=== PATIENT | male | born 1960 | race Caucasian/White ===

== ENCOUNTER 2019-06-19 10:00 | Inpatient (IN) | payer OTHER ==
[~2019-06-19] VITALS: Ht 172.7 cm; Wt 95.4 kg
[~2019-06-19 10:00] MED LIST: ATOR1TAB19 PO; BASA100I SC; METF500T13 PO; OMEP40CA97 PO; WARF-22 PO
[2019-06-20 13:02] LABS: BASO # 0.1 10^3/uL (0.0-0.2); BASO % 0.3 % (0.0-1.0); EOS # 0.2 10^3/uL (0.0-0.5); HEMATOCRIT 43.3 % (42.0-52.0); LYMPH # 3.8 10^3/uL (1.5-5.0); LYMPH % 25.2 % (24.0-44.0); MEAN CORPUSCULAR HEMOGLOBIN 31.7 pg (27.0-33.0); MEAN CORPUSCULAR HGB CONC 34.6 g/dl (32.0-36.5); MEAN CORPUSCULAR VOLUME 91.5 fl (80.0-96.0); MONO # 1.6 10^3/uL (0.0-0.8); MONO % 10.4 % (0.0-5.0); NEUTROPHILS # 9.5 10^3/uL (1.5-8.5); NEUTROPHILS % 62.6 % (36.0-66.0); PLATELET COUNT, AUTOMATED 223 10^3/uL (150-450); RED BLOOD COUNT 4.73 10^6/uL (4.30-6.10); WHITE BLOOD COUNT 15.1 10^3/uL (4.0-10.0)
[2019-06-20] MEDS ORDERED: WARF-22 PO (13:16)
[2019-06-20] MEDS ORDERED: METF-877 PO (13:16)
[2019-06-20] MEDS ORDERED: OMEP-218 PO (13:16)
[2019-06-20 13:22] LABS: INR 1.15; PARTIAL THROMBOPLASTIN TIME 28.4 SECONDS (25.0-38.4); PROTHROMBIN TIME 14.4 SECONDS (11.8-14.0)
[2019-06-20 13:31] LABS: BLOOD UREA NITROGEN 11 MG/DL (7-18); CALCIUM LEVEL 8.7 MG/DL (8.8-10.2); CARBON DIOXIDE LEVEL 28 MEQ/L (21-32); CHLORIDE LEVEL 106 MEQ/L (98-107); CREATININE FOR GFR 0.94 MG/DL (0.70-1.30); GLOMERULAR FILTRATION RATE > 60.0 (>49); GLUCOSE, FASTING 134 MG/DL (70-100); POTASSIUM SERUM 3.7 MEQ/L (3.5-5.1); SODIUM LEVEL 140 MEQ/L (136-145)
[2019-06-20] MEDS ORDERED: GLUCOSE 4 GM CHEW TABLET PO PRN (13:45)
[2019-06-20] MEDS ORDERED: GLUCAGON FOR INJ 1 MG VIAL (J1610) SC PRN (13:45)
[2019-06-20] MEDS ORDERED: OMEPRAZOLE 20 MG CAP PO PRN (13:45)
[2019-06-20] MEDS ORDERED: DEXTROSE 50% 50 ML SYRINGE IV PRN (13:45)
[2019-06-20] MEDS ORDERED: HEPARIN SOD (PORCINE) 5000 UNITS/ML VIAL (J1644 PER 1000UNITS) IV PRN (13:45)
[2019-06-20 14:00] VITALS: BP 120/63
[2019-06-20] MEDS: HEPARIN DRIP 25,000 UNITS in IV 1 EA IV SCH (15:18)
--- NOTE | 2019-06-20 16:06 | HPEPDOC ---
General Date of Admission Jun 20, 2019 at 12:06 Date of Service: Jun 20, 2019 Chief Complaint The patient is a 58-year-old male admitted with a reason for visit of Elevated Prostate Specific Antigen, History Of. Source: Patient, RN/, Old records History of Present Illness 58 year old male with metallic aortic valve replacement, pacemaker, bladder cancer, Diabetes, GERD has been noted to have elevated PSA by urologist. For this patient needs a prostate biopsy. Patient is on coumadin for AVR metallic valve and per preoperative clearance done by Dr Solomon needs to the bridged with heparin after stopping coumadin prior to prostate biopsy. So the patient was admitted to the hospitalist service for anticoagulant bridging. Biopsy is scheduled for 06/22/[address] Steiner. Patient does not offer any complaints today. Home Medications Scheduled Atorvastatin Calcium (Atorvastatin Calcium) 10 Mg Tablet, 10 MG PO QPM, (Reported) @ 1800 Insulin Glargine,Hum.rec.anlog (Basaglar Kwikpen U-100) 100 Unit/1 Ml Insuln.pen, 10 UNIT SC QPM, (Reported) @1800 Metformin HCl (Metformin HCl) 1,000 Mg Tablet, 1,000 MG PO BID, (Reported) Warfarin Sodium (Warfarin Sodium) 10 Mg Tablet, 10 MG PO 6XWK, (Reported) TAKES 1/2 TAB ON MONDAYS. TAKES MEDICATION AT 0600 Warfarin Sodium (Warfarin Sodium) 10 Mg Tablet, 5 MG PO 1XWK, (Reported) MONDAYS @ 0600 Scheduled PRN Omeprazole (Omeprazole) 20 Mg Capsule.dr, 20 MG PO DAILY PRN for HEARTBURN, (Reported) Allergies Coded Allergies: No Known Allergies (Unverified , 06/19/19) Past Medical History Medical History GERD MECHANICAL VAVLE REPLACEMENT- AORTIC VALVE PACEMAKER FOR COMPLETE HEART BLOCK BLADDER CANCER-2017, TREATED IN [place] DIABETES HYPERLIPIDEMIA ELEVATED PSA Surgical History OPEN HEART SURGERY- MECHANICAL VALVE & PACEMAKER PLACEMENT 05/2017 BLADDER BIOPSY, CANCER REMOVAL Family History FATHER: 49 YRS, HEART ATTACK, DIAGNOSED WITH DIABETES MOTHER: 87 YRS BROTHER-CANCER- ABDOMINAL CANCER, BROTHER HAD KIDNEY STONES, Heart Valve problem SISTER-DIABETES , heart Valve problem Social History * Smoker: current smoker Alcohol: Denies Drugs: denies A-FIB/CHADSVASC A-FIB History Current PO Anticoag Therapy: Yes Review of Systems Constitutional: Denies: Chills, Fever, Night Sweats Eyes: Denies: Pain, Vision change ENT: Denies: Head Aches, Ear Pain, Dysphagia Skin: Denies: Rash, Lesions, Breakdown Pulmonary: Denies: Dyspnea, Cough Cardiovascular: Denies: Chest Pain, Palpitations, Orthopnea, Paroxysmal Noc. Dyspnea, Lt Headedness Gastrointestinal: Denies: Nausea, Vomiting, Abdominal Pain, Diarrhea Genitourinary: Denies: Dysuria, Frequency, Incontinence, Retention Hematologic: Denies: Bruising, Bleeding Excessively Musculoskeletal: Denies: Neck Pain, Back Pain, Joint Pain, Muscle Pain, Spasms Physical Examination General Exam: Positive: Alert, Cooperative, No Acute Distress Eye Exam: Positive: PERRLA, Conjunctiva & lids normal, EOMI; Negative: Sclera icteric ENT Exam: Positive: Atraumatic, Mucous membr. moist/pink, Pharynx Normal Neck Exam: Positive: Supple; Negative: JVD, thyromegaly Chest Exam: Positive: Clear to auscultation, Normal air movement Heart Exam: Positive: Rate Normal, Regular Rhythm, Normal S1, Normal S2, Murmurs (short systolic murumur), Other (click); Negative: Rubs Abdomen Exam: Positive: Normal bowel sounds, Soft; Negative: Tenderness, Hepatospenomegaly Extremity Exam: Positive: Normal pulses; Negative: Clubbing, Cyanosis, Edema Skin Exam: Positive: Nl turgor and temperature; Negative: Breakdown, Lesion Neuro Exam: Positive: Normal Gait, Normal Speech, Cranial Nerves 3-12 NL, Reflexes 2+ Laboratory Data Labs 24H Laboratory Tests 2 06/20/19 12:52: Immature Granulocyte % (Auto) 0.5, Neutrophils (%) (Auto) 62.6, Lymphocytes (%) (Auto) 25.2, Monocytes (%) (Auto) 10.4H, Eosinophils (%) (Auto) 1.0, Basophils (%) (Auto) 0.3, Neutrophils # (Auto) 9.5H, Lymphocytes # (Auto) 3.8, Monocytes # (Auto) 1.6H, Eosinophils # (Auto) 0.2, Basophils # (Auto) 0.1, Nucleated Red Blood Cells % (auto) 0.0, Prothrombin Time 14.4H, Prothromb Time International Ratio 1.15, Activated Partial Thromboplast Time 28.4, Anion Gap 6L, Glomerular Filtration Rate > 60.0, Calcium Level 8.7L CBC/BMP Laboratory Tests 06/20/19 12:52 Assessment/Plan 58 year old male with metallic aortic valve replacement, pacemaker, bladder cancer, Diabetes, GERD has been noted to have elevated PSA by urologist. For this patient needs a prostate biopsy. Patient is on coumadin for AVR metallic valve and per preoperative clearance done by Dr Solomon needs to the bridged with heparin after stopping coumadin prior to prostate biopsy. So the patient was admitted to the hospitalist service for anticoagulant bridging. ELEVATED PSA prostate Bx on 06/22/19 MECHANICAL VAVLE REPLACEMENT- AORTIC VALVE coumadin has been stopped prior to admission INR noted. start patient on heparin gtt DIABETES stop meformin lispro as per sliding scale Levemir at HS FS AC and HS HYPERLIPIDEMIA statin GERD omeprazole PACEMAKER FOR COMPLETE HEART BLOCK BLADDER CANCER-2017, TREATED IN [place] Plan / VTE VTE Prophylaxis Ordered?: Yes BENIGNO JURADO MD Jun 20, 2019 13:57
[2019-06-20] MEDS: ATORVASTATIN 10 MG TAB PO SCH (18:12)
[2019-06-20] MEDS: HumaLOG INSULIN (NovoLOG) PER UNIT SC SCH ×2 (18:12→20:17)
[2019-06-20] MEDS: LEVEMIR (INSULIN DETEMIR) 1 UNITS/0.01ML SC SCH (20:22)
[2019-06-20 22:00] VITALS: BP 128/67
[2019-06-21 03:44] LABS: HEMATOCRIT 43.1 % (42.0-52.0); HEMOGLOBIN 14.5 g/dl (13.5-17.5); MEAN CORPUSCULAR HEMOGLOBIN 31.2 pg (27.0-33.0); MEAN CORPUSCULAR HGB CONC 33.6 g/dl (32.0-36.5); MEAN CORPUSCULAR VOLUME 92.7 fl (80.0-96.0); PLATELET COUNT, AUTOMATED 206 10^3/uL (150-450); RED BLOOD COUNT 4.65 10^6/uL (4.30-6.10); WHITE BLOOD COUNT 16.7 10^3/uL (4.0-10.0)
[2019-06-21 04:16] LABS: ATYPICAL LYMPH 6 % (0-5); BASOPHILS 1 % (0-1); EOSINOPHILS 1 % (0-3); LYMPHOCYTES 35 % (16-44); MONOCYTES 11 % (0-5); NEUTROPHILS 46 % (28-66)
[2019-06-21 04:17] LABS: PLATELET ESTIMATE NORMAL (NORMAL)
[2019-06-21 04:27] LABS: BLOOD UREA NITROGEN 11 MG/DL (7-18); CALCIUM LEVEL 7.8 MG/DL (8.8-10.2); CARBON DIOXIDE LEVEL 31 MEQ/L (21-32); CHLORIDE LEVEL 109 MEQ/L (98-107); CREATININE FOR GFR 0.77 MG/DL (0.70-1.30); GLOMERULAR FILTRATION RATE > 60.0 (>49); GLUCOSE, FASTING 100 MG/DL (70-100); POTASSIUM SERUM 4.3 MEQ/L (3.5-5.1); SODIUM LEVEL 143 MEQ/L (136-145)
[2019-06-21 06:00] VITALS: BP 126/61
[2019-06-21] MEDS: HumaLOG INSULIN (NovoLOG) PER UNIT SC SCH ×4 (07:30→20:59)
[2019-06-21] MEDS: HEPARIN DRIP 25,000 UNITS in IV 1 EA IV SCH (08:28)
--- NOTE | 2019-06-21 12:08 | CR ---
DATE OF CONSULTATION: 06/20/2019 CHIEF COMPLAINT: Elevated prostate-specific antigen (PSA) on Coumadin. He was admitted for bridging prior to his procedure. HISTORY: This is a pleasant, 58-year-old white male, who was found to have a very hard prostate and elevated PSA of 11.7. He was scheduled for a prostate ultrasound and biopsy, but because of his Coumadin use for a prosthetic aortic valve, he was admitted for bridging prior to the procedure. He also has a history of bladder cancer and is scheduled for a cystoscopic evaluation. PAST MEDICAL HISTORY: Significant for; Gastroesophageal reflux disease (GERD). Mechanical aortic valve replacement. Pacemaker for a complete heart block. Bladder cancer diagnosed in 2018 while in [place]. Diabetes. Hyperlipidemia. ALLERGIES: None. PREVIOUS SURGERIES: Open heart surgery with mechanical valve and pacemaker placement in 05/2017. Bladder biopsy and bladder tumor resection in 2018. FAMILY HISTORY: Father at age 49 from heart attack, also had diabetes. Mother at age 87. One brother had abdominal cancer, another brother had kidney stones, and a sister has diabetes. SOCIAL HISTORY: Patient is , current smoker. REVIEW OF SYSTEMS: Negative, as per 12-point review. PHYSICAL EXAMINATION: Shows alert, oriented, white male, who is in no acute distress. HEENT: Pupils equal and reactive to light, sclera white, extraocular movements intact. NECK: Supple without adenopathy. Trachea is in midline. No jugular venous distention. CHEST: Normal thoracic. ABDOMEN: Is slightly rounded, benign with no masses, organomegaly, or tenderness. GENITALIA: Is normal. EXTREMITIES: Have good range of motion. ASSESSMENT: Patient is scheduled for a prostate biopsy for indurated prostate and elevated prostate-specific antigen (PSA) also for cystoscopy because of a history of bladder cancer. Patient will be bridged with Lovenox, which will be stopped 4 hours prior to his 11 o'clock procedure. He will be nothing by mouth after midnight and also have a Fleets enema the morning of the procedure and start antibiotics with one dose of Cipro the evening before, another dose the morning of his procedure.
--- NOTE | 2019-06-21 13:27 | IPNPDOC ---
Subjective Date Seen The patient was seen on 06/21/19. Subjective Chief Complaint/HPI Elevated PSA scheduled for cystoscopy and biopsy on 06/22/2019 General: Reports: Normal Appetite; Denies: Chills, Night Sweats, Fatigue, Malaise Constitutional: Denies: Chills, Fever, Night Sweats Objective Physical Examination General Exam: Positive: Alert, Cooperative, No Acute Distress Eye Exam: Positive: PERRLA, Conjunctiva & lids normal, EOMI; Negative: Sclera icteric ENT Exam: Positive: Atraumatic, Mucous membr. moist/pink, Pharynx Normal Neck Exam: Positive: Supple; Negative: JVD, thyromegaly Chest Exam: Positive: Clear to auscultation, Normal air movement Heart Exam: Positive: Rate Normal, Regular Rhythm, Normal S1, Normal S2, Murmurs (short systolic murumur), Other (click); Negative: Rubs Abdomen Exam: Positive: Normal bowel sounds, Soft; Negative: Tenderness, Hepatospenomegaly Extremity Exam: Positive: Normal pulses; Negative: Clubbing, Cyanosis, Edema Skin Exam: Positive: Nl turgor and temperature; Negative: Breakdown, Lesion Neuro Exam: Positive: Normal Gait, Normal Speech, Cranial Nerves 3-12 NL, Reflexes 2+ Other physical findings Patient is alert, oriented and in no acute distress well and eating well. Assessment /Plan Assessment Plan to continue coverage with Lovenox. This will be stopped 4 hours before his Levaquin o'clock procedure. He also will start antibiotics tonight with a second dose in the morning and he will have an enema in the morning as well. Plan/VTE VTE Prophylaxis Ordered?: Yes VS, I&O, 24H, [facility] Vital Signs/I&O Vital Signs Date Time Temp Pulse Resp B/P (MAP) Pulse Ox O2 Delivery O2 Flow Rate FiO2 06/21/19 06:00 97.5 59 16 126/61 (82) 99 Room Air I&O- Last 24 Hours up to 6 AM 06/21/19 06:00 Intake Total 642 ml Balance 642 ml Laboratory Data 24H LABS Laboratory Tests 2 06/20/19 13:57: Activated Partial Thromboplast Time 28.0 06/20/19 17:49: Bedside Glucose (Misc Panel) 177H 06/20/19 19:58: Bedside Glucose (Misc Panel) 158H 06/20/19 21:06: Activated Partial Thromboplast Time 72.1H 06/21/19 03:34: Neutrophils (%) (Auto) , Lymphocytes # (Auto) , Nucleated Red Blood Cells % (auto) 0.0, Neutrophils 46, Lymphocytes (Manual) 35, Monocytes (Manual) 11H, Eosinophils (Manual) 1, Basophils (Manual) 1, Atypical Lymphocytes 6H, Platelet Estimate NORMAL, Differential Slide Review Report, Peripheral Blood Smear Path Consult PERIPHERAL SMEAR, Activated Partial Thromboplast Time 83.3H, Anion Gap 3L, Glomerular Filtration Rate > 60.0, Calcium Level 7.8L 06/21/19 12:06: Bedside Glucose (Misc Panel) 125H CBC/BMP Laboratory Tests 06/21/19 03:34 KAISER TOLBERT MD Jun 21, 2019 13:27
--- NOTE | 2019-06-21 13:34 | IPN ---
DATE: 06/21/2019 PRIMARY CARE PROVIDER: ASHLEY Watson. UROLOGIST: Dr. Forest Steiner. Mr. Hunt was admitted for bridge therapy. He has a mechanical aortic valve and is on intravenous (IV) heparin in anticipation of a prostate biopsy tomorrow. No epistaxis, rectal bleeding or urinary bleeding. PHYSICAL EXAMINATION: VITAL SIGNS: Stable. LUNGS: Clear. HEART: Regular rate and rhythm. [place] prosthetic aortic valve click. ABDOMEN: Soft, nontender. No masses. No peripheral edema. LABORATORIES: White count 16.7, hemoglobin 14.5, platelets 206. Electrolytes unremarkable. IMPRESSION: 1. Elevated PSA. Plan: Prostate biopsy tomorrow. Holding his IV heparin an hour before the procedure, restarting it postoperatively, with reinstitution of his warfarin therapy. 2. Mechanical aortic valve. Bridge therapy with IV heparin in place. 3. Leukocytosis. Peripheral smear ordered.
[2019-06-21 14:00] VITALS: BP 132/66
[2019-06-21] MEDS: CIPROFLOXACIN 500 MG TAB PO SCH (18:00)
[2019-06-21] MEDS: ATORVASTATIN 10 MG TAB PO SCH (18:00)
--- NOTE | 2019-06-21 20:43 | IPN ---
DATE: 06/21/2019 ADDENDUM: Mr. Hunt is quite concerned about his behavior when he comes out of anesthesia. Apparently, he is combative and he is worried "I am going to take a swing at somebody." He wanted me to make the ophthalmic asst and operating room staff aware that he can be combative when emerging from anesthesia, so we will pass this along via this note.
[2019-06-21] MEDS: LEVEMIR (INSULIN DETEMIR) 1 UNITS/0.01ML SC SCH (21:04)
[2019-06-21 22:00] VITALS: BP 145/73
[2019-06-22] VITALS (8 sets, daily range): BP systolic 127–150; BP diastolic 66–89
[2019-06-22] MEDS: HEPARIN DRIP 25,000 UNITS in IV 1 EA IV SCH (01:28)
[2019-06-22] MEDS ORDERED: LR 1,000 ML IV ONE (06:00)
[2019-06-22] MEDS: CIPROFLOXACIN 500 MG TAB PO SCH (06:03)
[2019-06-22] MEDS ORDERED: FLEET ENEMA PR ONE (07:00)
[2019-06-22] MEDS: HumaLOG INSULIN (NovoLOG) PER UNIT SC SCH ×4 (07:30→20:28)
--- NOTE | 2019-06-22 07:44 | IPNPDOC ---
Subjective Review oF Systems Chief Complaint The patient is a 58-year-old male admitted with a reason for visit of Elevated Prostate Specific Antigen, History Of. Events since Last Encounter No acute events o/n. Objective Physical Examination General Exam: Alert, Cooperative, No Acute Distress Chest Exam: Normal air movement Heart Exam: Positive: Rate Normal, Regular Rhythm ABDOMEN EXAM: Soft Skin Exam: Nl turgor and temperature Psych Exam: Mental status NL, Mood NL Vital Signs/I&O Vital Signs Date Time Temp Pulse Resp B/P (MAP) Pulse Ox O2 Delivery O2 Flow Rate FiO2 06/22/19 06:00 98.6 53 19 127/66 (86) 95 06/21/19 22:00 Room Air I&O- Last 24 Hours up to 6 AM 06/22/19 05:59 Intake Total 310 ml Balance 310 ml Laboratory Data Labs 24H Laboratory Tests 2 06/21/19 12:06: Bedside Glucose (Misc Panel) 125H 06/21/19 17:33: Bedside Glucose (Misc Panel) 157H 06/21/19 20:08: Bedside Glucose (Misc Panel) 149H 06/22/19 03:31: Activated Partial Thromboplast Time 79.8H 06/22/19 05:21: Bedside Glucose (Misc Panel) 125H FSBS Laboratory Tests Test 06/21/19 12:06 06/21/19 17:33 06/21/19 20:08 06/22/19 05:21 Range/Units Bedside Glucose (Misc Panel) 125 157 149 125 80-115 MG/DL Microbiology Microbiology 06/21/19 Stool Occult Blood (ZAIN) - Final, Complete Assessment/Plan Date Seen The patient was seen on 06/22/19. Patient Summary This is a 58 y/o M w/ a mechanical heart valve, a hx of bladder cancer, and an elevated PSA of 11.7, admitted for heparin bridge therapy this past Saturday in preparation for a cystoscopy and transrectal ultrasound-guided prostate biopsy today. Plan/VTE VTE Prophylaxis Ordered?: Yes VTE Exclusion Mechanical Proph: N/A:VTE Prophy Ordered VTE Exclusion Pharmacological: N/A:VTE Prophy Ordered Plan - heparin drip on hold as of 7am - patient has received a dose of cipro last night and one this morning - fleets enema given this morning - plan OR later this morning for cystoscopy and TRUS prostate biopsy - patient may resume heparin drip and coumadin tomorrow morning MICHELLE BORRERO MD Jun 22, 2019 07:44
[2019-06-22] MEDS ORDERED: MIDAZOLAM INJ 2 MG/2 ML VIAL (J2250) As Ordered ONE (09:33)
[2019-06-22] MEDS ORDERED: fentaNYL 100 MCG/2 ML INJECTION (J3010) As Ordered ONE (09:34)
[2019-06-22] MEDS ORDERED: LIDOCAINE 2% INJ 100 MG/5 ML SDV (FOR ANES.) As Ordered ONE (09:34)
[2019-06-22] MEDS ORDERED: propofoL 200 MG/20 ML VIAL As Ordered ONE (09:34)
--- NOTE | 2019-06-22 09:35 | IPNPDOC ---
Subjective Date Seen The patient was seen on 06/22/19. Subjective Chief Complaint/HPI elevated PSA Events since last encounter Anticipated cystoscopy with TURP bx of prostate this am. Constitutional: Denies: Chills, Fever, Night Sweats Pulmonary: Denies: Dyspnea, Cough Cardiovascular: Denies: Chest Pain, Palpitations, Orthopnea, Paroxysmal Noc. Dyspnea, Lt Headedness Gastrointestinal: Denies: Nausea, Vomiting, Abdominal Pain, Diarrhea, Constipation Objective Physical Examination General Exam: Positive: Alert, Cooperative, No Acute Distress Eye Exam: Positive: PERRLA, Conjunctiva & lids normal, EOMI; Negative: Sclera icteric ENT Exam: Positive: Atraumatic, Mucous membr. moist/pink, Pharynx Normal Neck Exam: Positive: Supple; Negative: JVD, thyromegaly Chest Exam: Positive: Clear to auscultation, Normal air movement Heart Exam: Positive: Rate Normal, Regular Rhythm Abdomen Exam: Positive: Normal bowel sounds, Soft; Negative: Tenderness, Hepatospenomegaly Extremity Exam: Positive: Normal pulses; Negative: Clubbing, Cyanosis, Edema Skin Exam: Positive: Nl turgor and temperature; Negative: Breakdown, Lesion Neuro Exam: Positive: Normal Gait, Normal Speech, Cranial Nerves 3-12 NL, Reflexes 2+ Assessment /Plan Problems (1) Encounter for monitoring bridging anticoagulation therapy Problem Text: Has mechanical heart valve. Heparin on hold. Will resume in am with Warfarin. Plan/VTE VTE Prophylaxis Ordered?: Yes VTE Exclusion Mechanical Proph: N/A:VTE Prophy Ordered VTE Exclusion Pharmacological: N/A:VTE Prophy Ordered VS, I&O, 24H, Fishbone Vital Signs/I&O Vital Signs Date Time Temp Pulse Resp B/P (MAP) Pulse Ox O2 Delivery O2 Flow Rate FiO2 06/22/19 06:00 98.6 53 19 127/66 (86) 95 06/21/19 22:00 Room Air I&O- Last 24 Hours up to 6 AM 06/22/19 06:00 Intake Total 310 ml Balance 310 ml Laboratory Data 24H LABS Laboratory Tests 2 06/21/19 12:06: Bedside Glucose (Misc Panel) 125H 06/21/19 17:33: Bedside Glucose (Misc Panel) 157H 06/21/19 20:08: Bedside Glucose (Misc Panel) 149H 06/22/19 03:31: Activated Partial Thromboplast Time 79.8H 06/22/19 05:21: Bedside Glucose (Misc Panel) 125H Microbiology Microbiology 06/21/19 Stool Occult Blood (ZAIN) - Final, Complete Ericka Burns MAIL AGENT Jun 22, 2019 09:34
[2019-06-22] MEDS ORDERED: LIDOCAINE 2% 5ML JELLY UROJET As Ordered ONE (10:14)
[2019-06-22] MEDS ORDERED: LIDOCAINE 1% SDV INJ 30 ML VIAL As Ordered ONE (10:28)
[2019-06-22] MEDS ORDERED: BUPIVACAINE HCL 0.25% 30 ML VIAL As Ordered ONE (10:28)
--- NOTE | 2019-06-22 11:24 | ROOPDOC ---
[facility] Report Of Operation Report of Operation DATE OF PROCEDURE: 06/22/19 PREPROCEDURE DIAGNOSES: History of Bladder Cancer, Elevated Prostate Specific Antigen (PSA). POSTPROCEDURE DIAGNOSES: History of Bladder Cancer, Elevated PSA. PROCEDURE: Cystoscopy, Transrectal Ultrasound-guided Prostate Biopsy. SURGEON: Michelle Borrero MD SEAM HAMMERER: None ANESTHESIA: Monitored Anesthesia Care (MAC) OPERATIVE INDICATIONS: This is a 58 year old male with a history of bladder cancer and an elevated PSA of 11.7. He was brought to the operating room today for the above procedures. DESCRIPTION OF PROCEDURE: The patient was brought to the operating room and MAC anesthesia was administered. The patient was then prepped and draped in the supine position in the usual sterile fashion. Lidocaine jelly was inserted into the urethra and subsequently, a flexible scope was passed into the bladder using saline as a distention medium. The bladder was inspected circumferentially. The scope was retroflexed to observe the bladder base. There were no bladder tumors or other mucosal lesions. There were no bladder stones. Bilateral ureteral orifices were orthotopic and effluxed clear urine. The urethra was unremarkable. The bladder was drained and then the patient was repositioned the left lateral position. A transrectal ultrasound probe was placed into the rectum. A prostatic block was created with injection of 50% mixture of 1/4% Marcaine and 1% lidocaine below the left and right seminal vesicle each of the 5 mL. Subsequently the ultrasonologist measured the dimensions of the prostate and the volume was approximately 25mL. Then 12 core biopsies of the prostate were obtained using a disposable biopsy gun, 6 each from the right and 6 from the left, 2 from the base, 2 from the mid zone and 2 from the apex. There were no complications and the patient tolerated the procedure well. He was awakened from anesthesia and taken to the recovery room in stable condition. ESTIMATED BLOOD LOSS: Approximately 5 mL. COMPLICATIONS: None. SPECIMENS: Prostate biopsies. PLAN: The patient will be bridged back on to coumadin with a heparin drip st arting tomorrow morning. Once his INR is therapeutic he will be discharged home. He will follow up in urology clinic next week to discuss pathology results. MICHELLE BORRERO MD Jun 22, 2019 11:24
[2019-06-22] MEDS ORDERED: ePHEDrine SULFATE 25 MG/5 ML(5MG/ML) SYRINGE As Ordered ONE (11:48)
[2019-06-22] MEDS ORDERED: ONDANSETRON 4MG/2ML VIAL (J2405) IV PRN (12:00)
[2019-06-22] MEDS ORDERED: LR 1,000 ML IV SCH (12:00)
--- NOTE | 2019-06-22 12:23 | REP ---
Prostate sonography: History: Elevated PSA Sonographic findings: Trans rectal prostate sonography demonstrates unremarkable seminal vesicles. Prostate gland is heterogeneously enlarged with calcifications and cystic changes noted. Glandular dimensions are measured at 4.5 x 2.7 x 4.0 cm with a calculated glandular volume of 25.3 ml. There is a 13 mm hypoechoic area in the apex of the prostate gland to the right of midline. Transrectal sonographic guidance is provided to Dr. Steiner who performed trans rectal ultrasound guided needle biopsy procedure . Electronically Signed by Sudeep Randall MD 06/22/2019 12:15 P
[2019-06-22] MEDS: ATORVASTATIN 10 MG TAB PO SCH (17:26)
[2019-06-22] MEDS: LEVEMIR (INSULIN DETEMIR) 1 UNITS/0.01ML SC SCH (20:27)
[2019-06-23 02:00] VITALS: BP 145/74
[2019-06-23 06:00] VITALS: BP 149/74
[2019-06-23 06:41] LABS: BASO # 0.1 10^3/uL (0.0-0.2); BASO % 0.4 % (0.0-1.0); EOS # 0.3 10^3/uL (0.0-0.5); HEMATOCRIT 41.5 % (42.0-52.0); HEMOGLOBIN 14.3 g/dl (13.5-17.5); LYMPH # 3.7 10^3/uL (1.5-5.0); LYMPH % 28.3 % (24.0-44.0); MEAN CORPUSCULAR HEMOGLOBIN 31.5 pg (27.0-33.0); MEAN CORPUSCULAR HGB CONC 34.5 g/dl (32.0-36.5); MEAN CORPUSCULAR VOLUME 91.4 fl (80.0-96.0); MONO # 1.4 10^3/uL (0.0-0.8); MONO % 10.9 % (0.0-5.0); NEUTROPHILS # 7.5 10^3/uL (1.5-8.5); NEUTROPHILS % 57.9 % (36.0-66.0); PLATELET COUNT, AUTOMATED 199 10^3/uL (150-450); RED BLOOD COUNT 4.54 10^6/uL (4.30-6.10); WHITE BLOOD COUNT 12.9 10^3/uL (4.0-10.0)
[2019-06-23 07:03] LABS: BLOOD UREA NITROGEN 7 MG/DL (7-18); CALCIUM LEVEL 8.3 MG/DL (8.8-10.2); CARBON DIOXIDE LEVEL 25 MEQ/L (21-32); CHLORIDE LEVEL 112 MEQ/L (98-107); CREATININE FOR GFR 0.68 MG/DL (0.70-1.30); GLOMERULAR FILTRATION RATE > 60.0 (>49); GLUCOSE, FASTING 114 MG/DL (70-100); POTASSIUM SERUM 3.8 MEQ/L (3.5-5.1); SODIUM LEVEL 142 MEQ/L (136-145)
[2019-06-23] MEDS ORDERED: HEPARIN SOD (PORCINE) 5000 UNITS/ML VIAL (J1644 PER 1000UNITS) IV PRN (07:30)
[2019-06-23] MEDS ORDERED: HEPARIN SOD (PORCINE) 5000 UNITS/ML VIAL (J1644 PER 1000UNITS) IV ONE (08:00)
[2019-06-23] MEDS: HEPARIN DRIP 25,000 UNITS in IV 1 EA IV SCH ×2 (08:00→09:12)
[2019-06-23 08:19] LABS: HEMATOCRIT 43.4 % (42.0-52.0); MEAN CORPUSCULAR HEMOGLOBIN 31.5 pg (27.0-33.0); MEAN CORPUSCULAR HGB CONC 34.6 g/dl (32.0-36.5); MEAN CORPUSCULAR VOLUME 91.2 fl (80.0-96.0); PLATELET COUNT, AUTOMATED 220 10^3/uL (150-450); RED BLOOD COUNT 4.76 10^6/uL (4.30-6.10); WHITE BLOOD COUNT 13.8 10^3/uL (4.0-10.0)
[2019-06-23] MEDS: HumaLOG INSULIN (NovoLOG) PER UNIT SC SCH (09:13)
[2019-06-23] MEDS ORDERED: WARFARIN SOD 5 MG TAB PO ONE (17:00)
--- NOTE | 2019-06-23 20:48 | DSES ---
DATE OF ADMISSION: 06/20/2019 DATE OF DISCHARGE: 06/23/2019 PRIMARY CARE PHYSICIAN: ASHLEY Lund ATTENDING PHYSICIAN: Dr. Justice Carney ADMITTING DIAGNOSIS: Elevated prostate-specific antigen with mechanical heart valve. DISCHARGE DIAGNOSIS: Elevated prostate-specific antigen with mechanical heart valve. PROCEDURES: Patient is status post transrectal ultrasound (TRUS) prostate biopsy with cystoscopy by Dr. Forest Steiner. HOSPITAL COURSE: This is a 58-year-old gentleman who was admitted initially for heparin bridging therapy secondary to a mechanical heart valve. Patient's heparin was stopped yesterday morning, and he was taken to the operating room (OR) for cystoscopy with TRUS biopsy of the prostate, which he tolerated well. Vital signs have remained stable. Patient has remained afebrile throughout hospitalization. He denies any concerns or complaints. Patient's blood sugars have remained stable. PLAN: Patient will be discharged to home with Lovenox 100 mg subcutaneous twice a day for the next 3-5 days along with his warfarin sodium 10 mg by mouth daily. He will have a repeat INR in 3 days for further evaluation of his bridge therapy and warfarin. MEDICATIONS: - atorvastatin calcium 10 mg by mouth every evening - Basaglar Kwikpen 10 units subcutaneous every evening - metformin 1000 mg by mouth twice a day - omeprazole 20 mg by mouth daily as needed for heartburn - warfarin sodium as already stated Patient is discharged is stable and satisfactory condition with no further questions at time of discharge.
== END 2019-06-23 11:26 | disposition home or self-care (01) | DRG 861 ==
LOC: M MSPAV 06-20 12:06 → EDSTATUS 06-22 11:30
PROVIDERS: ADMIT Internal Medicine; ATTEND Family Medicine
PROC: 0VB07ZX Excision of Prostate, Via Natural or Artificial Opening, Diagnostic (ICD-10-PCS; principal; 2019-06-22 10:05)
PROC: 0TJB8ZZ Inspection of Bladder, Via Natural or Artificial Opening Endoscopic (ICD-10-PCS; 2019-06-22 10:05)
DX: R97.20 Elevated prostate specific antigen [PSA] (principal); E11.9 Type 2 diabetes mellitus without complications; E78.5 Hyperlipidemia, unspecified; F17.200 Nicotine dependence, unspecified, uncomplicated; D72.829 Elevated white blood cell count, unspecified; Z95.2 Presence of prosthetic heart valve; Z95.0 Presence of cardiac pacemaker; K21.9 Gastro-esophageal reflux disease without esophagitis; Z79.01 Long term (current) use of anticoagulants; Z85.51 Personal history of malignant neoplasm of bladder; Z79.4 Long term (current) use of insulin

== ENCOUNTER → 2019-11-13 | Outpatient (REF) | payer OTHER ==
[~2019-11-13] MED LIST changes: +METF-877 PO; +OMEP-218 PO
== END ==
LOC: M SMT 07:23
PROVIDERS: ATTEND Urology
DX: C67.9 Malignant neoplasm of bladder, unspecified (principal)

== ENCOUNTER → 2020-05-26 | Outpatient (CLI) | payer OTHER ==
[2020-05-26 15:43] LABS: INR 3.29; PROTHROMBIN TIME 34.2 SECONDS (12.5-14.3)
== END ==
LOC: M PLALAB 14:00
PROVIDERS: ATTEND Physician Assistant
DX: Z51.81 Encounter for therapeutic drug level monitoring (principal); Z79.01 Long term (current) use of anticoagulants; Z95.2 Presence of prosthetic heart valve